=== PATIENT | female | born 1970 | race Caucasian/White ===

== ENCOUNTER 2016-11-17 13:00 | Emergency (ER) | payer OTHER ==
[~2016-11-17] VITALS: Ht 154.9 cm; Wt 67.5 kg
[2016-11-17 13:06] VITALS: TEMP 36.5; Ht 154.9 cm; Wt 67.5 kg
[2016-11-17 13:57] VITALS: O2SAT 97
[2016-11-17] MEDS ORDERED: SODIUM CHLORIDE 0.9% 1000ML 1,000 ML IV SCH (14:01)
--- NOTE | 2016-11-17 14:13 | DIAGNOSTIC IMAGING REPORT ---
CT SCAN OF THE BRAIN WITHOUT IV CONTRAST CLINICAL HISTORY: Headache. Stroke like symptoms. Visual loss in the left eye. COMPARISON STUDY: No priors. TECHNIQUE: Unenhanced axial CT scan of the brain is performed from the vertex to the skull base. Automated dose control exposure was utilized. CT DOSE: 537.48 mGy.cm FINDINGS: Brain parenchyma: The brain parenchyma is normal in appearance. There is no hemorrhage, mass effect, or evidence of acute territorial ischemia by CT criteria. Cabezas-white matter is preserved. No extra-axial fluid collection is seen. Ventricles, sulci, cisterns: Normal in configuration. Intracranial vasculature: The visualized intracranial vasculature at the skull base is normal in appearance. Calvarium: Unremarkable. Sinuses and mastoids: The visualized paranasal sinuses are clear. The mastoid air cells are well pneumatized. Orbits: The bony orbits are grossly intact. IMPRESSION: There is no hemorrhage, mass effect, or evidence of acute territorial ischemia by CT criteria. Electronically signed by: James Zuñiga M.D. 11/17/2016 2:11 PM Dictated Date/Time: 11/17/2016 2:09 PM
[2016-11-17 14:15] LABS: BASO % 0.4 %; BASO ABS # 0.02 K/uL (0-0.2); COMPLETE YES; EOS % 2.2 %; HEMATOCRIT 36.5 % (37-47); LYMPH % 39.2 %; LYMPH ABS # 1.77 K/uL (1.2-3.4); MEAN CELL VOLUME 91.5 fL (80-100); MEAN CORPUSCULAR HEMOGLOBIN 32.3 pg (25-34); MEAN CORPUSCULAR HGB CONC 35.3 g/dl (32-36); MEAN PLATELET VOLUME 9.4 fL (7.4-10.4); MONO % 8.8 %; NEUT % 49.4 %; PLATELET COUNT 284 K/uL (130-400); RED BLOOD COUNT 3.99 M/uL (4.2-5.4); WHITE BLOOD COUNT 4.52 K/uL (4.8-10.8)
--- NOTE | 2016-11-17 14:27 | DIAGNOSTIC IMAGING REPORT ---
CHEST ONE VIEW PORTABLE HISTORY: Stroke COMPARISON: None. FINDINGS: The heart is normal in size. No pleural effusions. No pneumothorax. No focal lung consolidations. No evidence for pulmonary edema. IMPRESSION: No acute process. Electronically signed by: Jakob Cardoso M.D. 11/17/2016 2:26 PM Dictated Date/Time: 11/17/2016 2:25 PM
[2016-11-17 14:32] LABS: INR 0.9 (0.9-1.1); PROTHROMBIN TIME (PATIENT) 9.8 SECONDS (9.0-12.0)
[2016-11-17 14:33] LABS: BLOOD UREA NITROGEN 18 mg/dl (7-18); BUN/CREATININE RATIO 19.4 (10-20); CALCIUM 9.2 mg/dl (8.5-10.1); CARBON DIOXIDE 25 mmol/L (21-32); CHLORIDE 107 mmol/L (98-107); CREATININE 0.94 mg/dl (0.60-1.20); GLUCOSE 98 mg/dl (70-99); POTASSIUM 3.6 mmol/L (3.5-5.1); SODIUM 141 mmol/L (136-145)
[2016-11-17 14:37] LABS: BENZODIAZEPINE, URINE NEG (NEG); COCAINE,URINE NEG (NEG); PHENCYCLIDINE, URINE NEG (NEG)
[2016-11-17 14:38] LABS: CKMB/CK RATIO 0.7 (0-3.0)
[2016-11-17] MEDS ORDERED: DiphenhydrAMINE HCL 50 MG/ML VIAL IV STA (14:52)
[2016-11-17] MEDS ORDERED: SODIUM CHLORIDE 0.9% 1000ML 1,000 ML IV STA (14:52)
[2016-11-17] MEDS ORDERED: METOCLOPRAMIDE HCL INJ 5 MG/ML 2 ML VIAL IV STA (14:52)
--- NOTE | 2016-11-17 15:45 | DIAGNOSTIC IMAGING REPORT ---
Brain MRI WITHOUT CONTRAST HISTORY: Right facial and right hand numbness. TECHNIQUE: Multiplanar multisequence MRI of the brain was performed without the use of contrast. COMPARISON STUDY: None. FINDINGS: There are no areas of restricted diffusion to suggest acute infarction. The midline structures are intact. The paranasal sinuses are clear. The mastoid air cells are clear. The ventricles and sulci are within normal limits for age. There is no mass, hematoma, midline shift. The major vascular flow-voids at the skull base are well maintained. IMPRESSION: No acute intracranial abnormality. Electronically signed by: Jakob Cardoso M.D. 11/17/2016 3:43 PM Dictated Date/Time: 11/17/2016 3:29 PM
[2016-11-17] MEDS ORDERED: KETOROLAC TROMETHAMINE 30 MG/ML VIAL IV STA (15:56)
[2016-11-17] MEDS ORDERED: IBUP-1451 PO (16:25)
[2016-11-17] MEDS ORDERED: ESTR2TAB PO (16:25)
[2016-11-17 16:46] VITALS: BP 116/69; PULSE 67; O2SAT 97
--- NOTE | 2016-11-17 18:08 | EMERGENCY ROOM VISIT NOTE ---
History Report prepared by Nancy: Marco Gupta Under the Supervision of: Dr. Bill Dumont M.D. First contact with patient: 13:50 Chief Complaint: HEADACHE Stated Complaint: HEADACHE, NUMBNESS, CAN'T SEE L EYE History of Present Illness The patient is a 46 year old female who presents to the Emergency Room with complaints of a constant headache that began two and a half hours ago (at 1130) . She rates her pain an 8/10 in severity. At this time, the patient states her headache began and has been constant since. Thiry to forty minutes later (1200- 1210), she notes that the right side of her face began to be numb. She also began to have trouble with her vision on her right side as well. Now, the numbness has persistent and spread to her right arm and hand. She notes that she has tunnel vision as well. She states that light does not affect her headache. She denies any trouble swallowing, but notes that her tongue feels numb. She denies any abdominal pain or vomiting. She is currently taking hormone therapy. She is on Estradiol 2 mg daily. She is not taking any medication for her blood pressure. She denies any history of stroke in her family. She does state that she had a history of migraines when she was very young but has not had any in many years. She also states that this does not feel like her migraines and she is not light sensitive. Source of History: patient Onset: 2 and a half hours ago Position: head Symptom Intensity: 8/10 Quality: ache, numbness Timing: constant Associated Symptoms: + numbness (Right face and right arm/hand. None in legs or abdomen.), No vomiting, No abdominal pain Review of Systems See HPI for pertinent positives & negatives. A total of 10 systems reviewed and were otherwise negative. Past Medical & Surgical Medical Problems: (1) No Known Active Medical Problems Family History Patient reports no known family medical history. Social History Smoking Status: Never Smoker Smokeless Tobacco Use: No Drug Use: none Occupation Status: employed Current/Historical Medications Scheduled Estradiol (Estradiol), 2 MG PO QAM Scheduled PRN Ibuprofen Tab (Motrin), 800 MG PO Q8H PRN for Pain Allergies Coded Allergies: No Known Allergies (Unverified , 11/17/16) Physical Exam Vital Signs Date Time Temp Pulse Resp B/P (MAP) Pulse Ox O2 Delivery O2 Flow Rate FiO2 11/17/16 16:46 67 16 116/69 97 11/17/16 15:58 69 16 122/75 97 Room Air 11/17/16 14:58 69 20 138/83 97 Room Air 11/17/16 14:17 73 18 150/92 97 Room Air 11/17/16 13:57 97 Room Air 11/17/16 13:52 73 11/17/16 13:06 36.5 83 18 174/101 100 Room Air Physical Exam Constitutional: Vital signs reviewed. Eyes: Pupils are equal round reactive to light. Conjunctiva are noninjected. ENT: Pharynx is clear without erythema or exudate. Mucous membranes are moist. Neck supple without meningeal signs. Respiratory: Clear to auscultation bilaterally. Breath sounds are equal bilaterally. Cardiovascular: Regular rate and rhythm. No rubs or gallops. GI: Soft, nondistended and nontender. Bowel sounds are present. Musculoskeletal: No peripheral edema. No lower extremity tenderness. Integumentary: No cyanosis. Neurological: The patient is awake and alert. Cranial nerves II-XII are intact , except for dysesthesia to the right face. Motor is 5 out of 5 all extremities. Sensation is intact to light touch all extremities, except to the right arm from the shoulder down and the right flank. Unable to distinguish sharp sensation in these areas. Normal speech. No pronator drift. No limb ataxia. Visual woods tested by confrontation with loss of peripheral vision in the right eye. Psychiatric: Normal affect. Medical Decision & Procedures ER Provider Diagnostic Interpretation: Radiology results as stated below per my review and the radiologist's interpretation: CT SCAN OF THE BRAIN WITHOUT IV CONTRAST CLINICAL HISTORY: Headache. Stroke like symptoms. Visual loss in the left eye. COMPARISON STUDY: No priors. TECHNIQUE: Unenhanced axial CT scan of the brain is performed from the vertex to the skull base. Automated dose control exposure was utilized. CT DOSE: 537.48 mGy.cm FINDINGS: Brain parenchyma: The brain parenchyma is normal in appearance. There is no hemorrhage, mass effect, or evidence of acute territorial ischemia by CT criteria. Cabezas-white matter is preserved. No extra-axial fluid collection is seen. Ventricles, sulci, cisterns: Normal in configuration. Intracranial vasculature: The visualized intracranial vasculature at the skull base is normal in appearance. Calvarium: Unremarkable. Sinuses and mastoids: The visualized paranasal sinuses are clear. The mastoid air cells are well pneumatized. Orbits: The bony orbits are grossly intact. IMPRESSION: There is no hemorrhage, mass effect, or evidence of acute territorial ischemia by CT criteria. Electronically signed by: James Zuñiga M.D. 11/17/2016 2:11 PM Dictated Date/Time: 11/17/2016 2:09 PM CHEST ONE VIEW PORTABLE HISTORY: Stroke COMPARISON: None. FINDINGS: The heart is normal in size. No pleural effusions. No pneumothorax. No focal lung consolidations. No evidence for pulmonary edema. IMPRESSION: No acute process. Electronically signed by: Jakob Cardoso M.D. 11/17/2016 2:26 PM Dictated Date/Time: 11/17/2016 2:25 PM Brain MRI WITHOUT CONTRAST HISTORY: Right facial and right hand numbness. TECHNIQUE: Multiplanar multisequence MRI of the brain was performed without the use of contrast. COMPARISON STUDY: None. FINDINGS: There are no areas of restricted diffusion to suggest acute infarction. The midline structures are intact. The paranasal sinuses are clear. The mastoid air cells are clear. The ventricles and sulci are within normal limits for age. There is no mass, hematoma, midline shift. The major vascular flow-voids at the skull base are well maintained. IMPRESSION: No acute intracranial abnormality. Electronically signed by: Jakob Cardoso M.D. 11/17/2016 3:43 PM Dictated Date/Time: 11/17/2016 3:29 PM Laboratory Results 11/17/16 13:50 Red Blood Count 3.99, Mean Corpuscular Volume 91.5, Mean Corpuscular Hemoglobin 32.3, Mean Corpuscular Hemoglobin Concent 35.3, Mean Platelet Volume 9.4, Neutrophils (%) (Auto) 49.4, Lymphocytes (%) (Auto) 39.2, Monocytes (%) (Auto) 8.8, Eosinophils (%) (Auto) 2.2, Basophils (%) (Auto) 0.4, Neutrophils # (Auto) 2.23, Lymphocytes # (Auto) 1.77, Monocytes # (Auto) 0.40, Eosinophils # (Auto) 0.10, Basophils # (Auto) 0.02 11/17/16 13:50 Test 11/17/16 13:50 11/17/16 13:55 11/17/16 14:12 11/17/16 14:14 White Blood Count 4.52 K/uL (4.8-10.8) Red Blood Count 3.99 M/uL (4.2-5.4) Hemoglobin 12.9 g/dL (12.0-16.0) Hematocrit 36.5 % (37-47) Mean Corpuscular Volume 91.5 fL (80-100) Mean Corpuscular Hemoglobin 32.3 pg (25-34) Mean Corpuscular Hemoglobin Concent 35.3 g/dl (32-36) Platelet Count 284 K/uL (130-400) Mean Platelet Volume 9.4 fL (7.4-10.4) Neutrophils (%) (Auto) 49.4 % Lymphocytes (%) (Auto) 39.2 % Monocytes (%) (Auto) 8.8 % Eosinophils (%) (Auto) 2.2 % Basophils (%) (Auto) 0.4 % Neutrophils # (Auto) 2.23 K/uL (1.4-6.5) Lymphocytes # (Auto) 1.77 K/uL (1.2-3.4) Monocytes # (Auto) 0.40 K/uL (0.11-0.59) Eosinophils # (Auto) 0.10 K/uL (0-0.5) Basophils # (Auto) 0.02 K/uL (0-0.2) RDW Standard Deviation 41.2 fL (36.4-46.3) RDW Coefficient of Variation 12.2 % (11.5-14.5) Immature Granulocyte % (Auto) 0.0 % Immature Granulocyte # (Auto) 0.00 K/uL (0.00-0.02) Prothrombin Time 9.8 SECONDS (9.0-12.0) Prothromb Time International Ratio 0.9 (0.9-1.1) Activated Partial Thromboplast Time 25.8 SECONDS (21.0-31.0) Partial Thromboplastin Ratio 1.0 Anion Gap 9.0 mmol/L (3-11) Est Creatinine Clear Calc Drug Dose 67.1 ml/min Estimated GFR () 85.5 Estimated GFR (Non- 73.8 BUN/Creatinine Ratio 19.4 (10-20) Calcium Level 9.2 mg/dl (8.5-10.1) Total Creatine Kinase 102 U/L (26-192) Creatine Kinase MB 0.7 ng/ml (0.5-3.6) Creatine Kinase MB Ratio 0.7 (0-3.0) Troponin I < 0.015 ng/ml (0-0.045) Urine Opiates Screen NEG (NEG) Urine Methadone, Qualitative NEG (NEG) Urine Barbiturates NEG (NEG) Urine Phencyclidine (PCP) Level NEG (NEG) Ur Amphetamine/Methamphetamine NEG (NEG) MDMA (Ecstasy) Screen NEG (NEG) Urine Benzodiazepines Screen NEG (NEG) Urine Cocaine Metabolite NEG (NEG) Urine Marijuana (THC) NEG (NEG) Bedside Glucose 102 mg/dl (70-90) Bedside Prothrombin Time INR 0.9 (0.9-1.1) Laboratory results as reviewed by me. Medications Administered Medications (Trade) Dose Ordered Sig/Kenan Route Start Time Stop Time Status Last Admin Dose Admin Sodium Chloride 1,000 ml @ 50 mls/hr Q20H IV 11/17/16 14:01 11/17/16 17:39 DC 11/17/16 16:00 50 MLS/HR Sodium Chloride 1,000 ml @ 999 mls/hr Q1H1M STAT IV 11/17/16 14:52 11/17/16 15:52 DC 11/17/16 15:01 999 MLS/HR Metoclopramide HCl (Reglan Inj) 10 mg NOW STAT IV 11/17/16 14:52 11/17/16 14:54 DC 11/17/16 15:01 10 MG Diphenhydramine HCl (Benadryl Inj) 50 mg NOW STAT IV 11/17/16 14:52 11/17/16 14:54 DC 11/17/16 15:01 50 MG Ketorolac Tromethamine (Toradol Inj) 10 mg NOW STAT IV 11/17/16 15:56 11/17/16 15:57 DC 11/17/16 16:17 10 MG ECG Indication: other (Neurologic symptoms) Rate (beats per minute): 65 Rhythm: normal sinus Findings: no acute ischemic change, no ectopy ED Course 1350: The patient was evaluated in room A4. A complete history and physical exam was performed. 1401: Ordered Sodium Chloride 1000 ml @ 50 mls/hr IV. 1423: I called Dr. Ruiz from [facility] for a stroke consultation on this patient. He will evaluate the patient for possible t-PA. 1452: Ordered Benadryl Inj 50 mg IV, Reglan Inj 10 mg IV, Sodium Chloride 1000 ml @ 999 mls/hr IV 1456: I discussed the possibility for IV t-PA with the patient and Dr. Ruiz. We discussed the risks and benefits and decided to get a stat MRI of the brain. If the MRI is positive, we will administer the t-PA still within the four and a half hour window, but outside of the three hour window. 1528: I went to reassess the patient. She was not in the room. I reviewed her MRI. I am waiting for an official radiologist review. Dr. Ruiz was informed that the MRI was completed. 1531: Dr. Cardoso - Radiology, informed me that the MRI is negative. 1556: I reassessed the patient at this time. We discussed her MRI results. She is feeling better, but still has a headache. Ordered Toradol Inj 10 mg IV. 1622: I spoke with Dr. Ruiz again. We discussed the patient's MRI results. T- PA will not be administered. 1624: The patient feels better, and her vision has improved. She does not notice any more numbness, however she states that it is hard to tell. She would like to go home. 1642: Upon reevaluation, the patient appeared to have improvement of her symptoms. I discussed tonight's findings with her. She verbalized agreement of the treatment plan. She was discharged home. Medical Decision This is a 46-year-old female presents with a headache and neurologic symptoms. Differential diagnosis includes migraine headache I did perform a limited focused review of portions of the patient's old chart on the electronic medical record. The patient has had no recent pertinent visits to this hospital. Blood Pressure Screening: Patient was found to have an elevated blood pressure and was referred to their primary doctor for recheck and further treatment. Medication Reconciliation: I attest that I have personally reviewed the patient' s current medication list. I did evaluate the patient as noted above. She is presenting with a headache. It is diffuse and associated with neurologic symptoms including loss of peripheral vision in the right eye and numbness to the right side of her face, trunk and arm. She does have a history of hormone replacement use which is her only known risk factors for CVA. She does have a prior history of migraines. After evaluating patient I did immediately call a stroke alert. IV access was established. The patient was placed on a continuous cardiac cath rn. I did order and personally review the patient's 12-lead EKG and chest x-ray as described above. I did order and review the patient's blood work as noted in the electronic medical record. I did order a CT of the head. I did review the images myself as well as the radiology report as described above. There is no evidence of intracranial abnormality. The [facility] stroke neurologist did evaluate the patient using telemedicine. He said that he felt 95% sure that the patient likely had a migraine but the patient wanted to have IVTPA just in case. I did have further discussion with her and explained to her the risks of IVTPA. She was very unsure about what to do and so I suggested that we get a stat MRI. While she would be out of the three-hour window she would still be within the 4.5 hour extended window. She and the neurologist agreed with this plan. I did order a stat MRI of the brain which did not show any evidence of CVA. IVTPA was therefore not given. I did treat her with IV normal saline, Reglan, Toradol and Benadryl. On reevaluation she is feeling better. Her headache is improved and her neurologic symptoms are improved. She did wish to go home. The neurologist recommended outpatient follow up. She was discharged in good condition. Consults Time Called: 1420 Consulting Physician: Dr. Sara Hendricks [facility] Returned Call: [phone] He will be evaluating the patient for possible t-PA. We also spoke throughout the patient's stay as well. Please see the ED course. Impression Primary Impression: Headache Additional Impression: Multiple neurological symptoms Scribe Attestation The scribe's documentation has been prepared under my direct and personally reviewed by me in its entirety. I confirm that the note above accurately reflects all work, treatment, procedures, and medical decision making performed by me. Departure Information Dispostion Home / Self-Care Referrals No Doctor, Assigned Forms HOME CARE DOCUMENTATION FORM, IMPORTANT VISIT INFORMATION, Work Instructions Patient Instructions Headaches Migraine and Tension, My [facility] Additional Instructions You have been examined and treated today on an emergency basis only. This is not a substitute for, or an effort to provide, complete comprehensive medical care. It is impossible to recognize and treat all injuries or illnesses in a single emergency department visit. It is therefore important that you follow up closely with your physician. Call as soon as possible for an appointment. Return for worsening symptoms or if you develop fever, new numbness or weakness on one side of your body, difficulties with your speech or walking, or any other concerning symptoms. Problem Qualifiers Primary Impression: Headache Headache type: unspecified Headache chronicity pattern: acute headache Intractability: not intractable Qualified Codes: R51 - Headache
== END 2016-11-17 16:46 | disposition home or self-care (01) ==
LOC: C.EDB 13:01 → C.EDA 16:46
DX: R51 Headache (principal); R29.818 Other symptoms and signs involving the nervous system; Z86.69 Personal history of other diseases of the nervous system and sense organs

== ENCOUNTER → 2017-09-06 | Outpatient (CLI) | payer OTHER ==
[~2017-09-06] MED LIST: ESTR2TAB PO; IBUP-1451 PO
[2017-09-06 08:27] LABS: BASO % 0.5 %; BASO ABS # 0.02 K/uL (0-0.2); EOS % 2.1 %; EOS ABS # 0.09 K/uL (0-0.5); HEMATOCRIT 40.1 % (37-47); HEMOGLOBIN 13.8 g/dL (12.0-16.0); LYMPH % 49.4 %; LYMPH ABS # 2.12 K/uL (1.2-3.4); MEAN CORPUSCULAR HGB CONC 34.4 g/dl (32-36); MEAN PLATELET VOLUME 9.5 fL (7.4-10.4); MONO % 9.1 %; MONO ABS # 0.39 K/uL (0.11-0.59); NEUT % 38.9 %; NEUT ABS # 1.67 K/uL (1.4-6.5); PLATELET COUNT 312 K/uL (130-400); RED CELL DISTRIBUTION WIDTH CV 12.7 % (11.5-14.5); RED CELL DISTRIBUTION WIDTH SD 43.3 fL (36.4-46.3); WHITE BLOOD COUNT 4.29 K/uL (4.8-10.8)
[2017-09-06 08:36] LABS: PTT PATIENT 25.4 SECONDS (21.0-31.0)
[2017-09-06 08:46] LABS: ALBUMIN 4.3 gm/dl (3.4-5.0); ALT/SGPT 30 U/L (12-78); BLOOD UREA NITROGEN 12 mg/dl (7-18); CALCIUM 9.1 mg/dl (8.5-10.1); CARBON DIOXIDE 22 mmol/L (21-32); CHOLESTEROL 210 mg/dl (0-200); CREATININE 1.14 mg/dl (0.60-1.20); GLUCOSE 86 mg/dl (70-99); POTASSIUM 4.2 mmol/L (3.5-5.1); SODIUM 138 mmol/L (136-145)
[2017-09-06 08:49] LABS: ALKALINE PHOSPHATASE 63 U/L (45-117); AST/SGOT 15 U/L (15-37); LDL CHOLESTEROL CALCULATED 109 mg/dl; TOTAL PROTEIN 7.6 gm/dl (6.4-8.2)
== END | disposition home or self-care (01) ==
LOC: C.LAB 16:40
PROVIDERS: ATTEND Family Medicine
DX: R07.9 Chest pain, unspecified (principal); R58 Hemorrhage, not elsewhere classified

== ENCOUNTER 2019-02-18 05:37 | Observation (INO) ==
--- NOTE | 2019-02-03 16:22 | PAT Medication Instructions ---
Medication Instructions Date of Service February 03, 2019 Home Medications estradiol 2 mg PO QAM hydrochlorothiazide 12.5 mg PO QAM propranolol 20 mg PO QAM topiramate [Qudexy XR] 150 mg PO QAM vitamin E 1,000 unit PO QAM ASK your prescriber and surgeon estradiol 2 mg PO QAM STOP taking 2 weeks before surgery (or as soon as possible if surgery is within 2 weeks) vitamin E 1,000 unit PO QAM DO NOT take the morning of surgery hydrochlorothiazide 12.5 mg PO QAM Take morning of surgery With a small sip of water, OTHERWISE NOTHING TO EAT OR DRINK AFTER MIDNIGHT: propranolol 20 mg PO QAM topiramate [Qudexy XR] 150 mg PO QAM Other Notes If you have any questions please call us at [phone] or [phone] or [phone] or [phone]
--- NOTE | 2019-02-04 14:17 | Anesthesiology Consultation ---
Date of Service February 04, 2019 Assessment & Plan (1) Encounter for pre-operative examination: Chart Review Chart Review: Acceptable Risk for Surgery and Patient seen in Pre Admission Testing Consults Requested medical (Please refer to PCP for hypokalemia in setting of HCTZ. She is okay for surgery, but this should be adressed.) Teaching & Discussion Pre-Anesthesia Teaching/Discussion Notes: Instructed NPO after midnight before surgery,except medications with 15 cc of water. Medication instructions prov ided according to the PAT guidelines. History Surgery Operation Date: 02/18/19 07:30 Proposed Procedures p Bilateral Sagittal Split Ramus Osteotomy - Asael Medel MD, DDS Height/Weight Height: 5 ft 1 in Weight: 52.3 kg Allergies Allergy/AdvReac Type Severity Reaction Status Date / Time verapamil AdvReac Tremors Verified 02/04/19 14:35 Medications Home Medications Medication Instructions Recorded Confirmed Last Taken estradiol 2 mg PO QAM 01/28/19 01/28/19 Unknown hydrochlorothiazide 12.5 mg PO QAM 01/28/19 01/28/19 Unknown propranolol 20 mg PO QAM 01/28/19 01/28/19 Unknown topiramate [Qudexy XR] 150 mg PO QAM 01/28/19 01/28/19 Unknown vitamin E 1,000 unit PO QAM 01/28/19 01/28/19 Unknown Past Medical History Medical History Diverticular disease Endometriosis Hypertension Migraine 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 Exercise / Class Metabolic Activity II 4-5 Yardwork/Stairs/Walk up hill Past Family History Family History Grandmother (Maternal) Family history of diabetes mellitus Aunt Family hx of colon cancer Grandfather (Maternal) Family hx of colon cancer Past Surgical History Surgical History History of appendectomy History of cholecystectomy History of colonoscopy History of laparoscopy MULTIPLE History of tonsillectomy History of total abdominal hysterectomy and bilateral salpingo-oophorectomy Past Anesthesia History No Hx of Anesthesia Complications (except remote hx PONV) and No Family Hx of Anesthesia Complications History of PONV No Hx of Motion Sickness and History of PONV Social History Smoking Status: Never smoker Do You Dip or Chew Tobacco: No Hx Alcohol Use: Yes Alcohol type: beer alcohol intake frequency: a few times a month Hx Substance Use: No substance use type: does not use Review of Systems Patient denies chest pain, shortness of breath, dyspnea on exertion, reflux, cough, wheezing, palpitations. Physical Exam Vital Signs VITALS BP 103/71 P 64 TEMP 98.0 SP02 98%RA RESP 18 PHYSICAL Full neck and c-spine range of motion. Full TMJ range of motion. TMD 3.5 finger breaths Mallampati Score 2 Dentition: intact, several caps/crowns Lungs: clear throughout to auscultation Cardiac: regular rate and rhythm, no murmurs noted Spine: normal Extremities: no edema Testing Laboratory Results 02/04/19 14:45 02/04/19 14:45 Blood Type O Positive 02/04/19 14:45 Antibody Screen NEGATIVE 02/04/19 14:45
[2019-02-04 15:32] LABS: Basophils # (auto) 0.02 K/uL (0-0.2); Basophils % (auto) 0.3 %; Eosinophils # (auto) 0.03 K/uL (0-0.5); Eosinophils % (auto) 0.5 %; Hematocrit (blood only) 38.7 % (37-47); Hemoglobin 13.7 g/dL (12.0-16.0); Immature Granulocytes # (auto) 0.01 K/uL (0.00-0.02); Immature Granulocytes % (auto) 0.2 %; Lymphocytes # (auto) 3.05 K/uL (1.2-3.4); Lymphocytes % (auto) 47.7 %; Mean Corpuscular Hemoglobin 32.8 pg (25-34); Mean Corpuscular Hgb Conc 35.4 g/dL (32-36); Mean Corpuscular Volume 92.6 fL (80-100); Mean Platelet Volume 9.4 fL (7.4-10.4); Monocytes # (auto) 0.53 K/uL (0.11-0.59); Monocytes % (auto) 8.3 %; Neutrophils # (auto) 2.76 K/uL (1.4-6.5); Platelet Count 316 K/uL (130-400); RDW Coefficient of Variation 12.7 % (11.5-14.5); RDW Standard Deviation 42.7 fL (36.4-46.3); Red Blood Count 4.18 M/uL (4.2-5.4)
[2019-02-04 15:39] LABS: BUN Creatinine Ratio 18.4 (10-20); Calcium 9.3 mg/dl (8.5-10.1); Creatinine Clr Calc Pharmacy 47.8 ml/min; Est GFR (Non-African American) 59.5; Potassium 3.1 mmol/L (3.5-5.1)
[2019-02-18] MEDS ORDERED: LR 15ML/HR IV SCH (06:00)
[2019-02-18] MEDS ORDERED: DEXAMETHASONE SOD PHOSPHATE 8 MG in SYRINGE 0 ML IV SCH (06:00)
[2019-02-18] MEDS ORDERED: CEFAZOLIN 1000MG 1,000 MG/7.5 ML SYR IV SCH (06:00)
[2019-02-18] MEDS ORDERED: NEOSTIGMINE METHYLSULFATE 5 MG/5 ML SYR ONE (06:33)
[2019-02-18] MEDS ORDERED: PROPOFOL IV EMULSION 10 MG/ML 20 ML VIAL IV ONE ×2 (06:33→10:55)
[2019-02-18] MEDS ORDERED: ONDANSETRON INJ 2 MG/ML 2 ML VIAL ONE ×2 (06:33→09:57)
[2019-02-18] MEDS ORDERED: GLYCOPYRROLATE 0.2 MG/ML VIAL ONE (06:33)
[2019-02-18] MEDS ORDERED: MIDAZOLAM HCL 1 MG/ML 2ML VIAL ONE (06:33)
[2019-02-18] MEDS ORDERED: LIDOCAINE HCL 2% 2 ML VIAL/AMP(20MG/ML) INFIL ONE (06:33)
[2019-02-18] MEDS ORDERED: DEXAMETHASONE SOD INJ 4 MG/ML VIAL ONE (06:33)
[2019-02-18] MEDS ORDERED: fentaNYL citrate 100 MCG/2 ML VIAL ONE ×3 (06:34→11:28)
[2019-02-18] MEDS ORDERED: OXYMETAZOLINE 0.05% 30 ML BTL ONE (06:47)
[2019-02-18] MEDS ORDERED: LIDOCAINE 2% JELLY 5 ML TUBE ONE (06:48)
[2019-02-18] MEDS ORDERED: CHLORHEXIDINE GLUCONATE 0.12% 480 ML ONE (06:59)
[2019-02-18] MEDS ORDERED: TRIAMCINOLONE ACET 0.1% OINT 15 GM TUBE ONE (06:59)
[2019-02-18] MEDS ORDERED: BUPIVACAINE/EPINEPHRINE 0.5% 1:200,000 1.8 ML CARP ONE (07:00)
[2019-02-18] MEDS ORDERED: SCOPOLAMINE 1.5 MG TDSY ONE (07:02)
--- NOTE | 2019-02-18 07:12 | History & Physical Bridge Note ---
Date of Service February 18, 2019 History & Physical Bridge Note I have examined the patient, reviewed the History & Physical and in the interval since the performance of the History & Physical I have noted the following changes of clinical significance: no changes noted.
[2019-02-18] MEDS ORDERED: ePHEDrine sulfate 50 MG/ML AMP IV PRN (07:19)
[2019-02-18] MEDS ORDERED: ATROPINE SULFATE 0.1 MG/ML 10ML SYR IV PRN (07:19)
[2019-02-18] MEDS ORDERED: ROCURONIUM BROMIDE 10 MG/ML 5 ML VIAL ONE (08:34)
--- NOTE | 2019-02-18 09:59 | Post Operative Brief Note ---
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
[2019-02-18] MEDS ORDERED: ONDANSETRON INJ 2 MG/ML 2 ML VIAL IV PRN (10:05)
[2019-02-18] MEDS ORDERED: ACETAMINOPHEN/HYDROCODONE ELIX 15 ML/CUP UDP PO PRN (10:05)
[2019-02-18] MEDS ORDERED: ACETAMINOPHEN SOL 650 MG/20.3 ML UDC PO PRN (10:05)
--- NOTE | 2019-02-18 10:33 | Operative Report ---
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 PROCEDURE: Bilateral sagittal split ramus osteotomy with rigid internal fixation. SURGEON: Asael Medel DDS. ANESTHESIA: General. ESTIMATED BLOOD LOSS: 100 mL. DRAINS: None. SPECIMENS: None. COMPLICATIONS: None. INDICATIONS: Kassie is a 48-year-old lady who I have come to know well. She has significant mandibular pain, chewing dysfunction and TMJ problems related to an asymmetric class 3 skeletal malocclusion. I have worked closely with her programming internship to develop a treatment plan. She has had the requisite preoperative orthodontics and preoperative model surgery, and she is ready for her definitive corrective jaw surgery. I have reviewed this carefully with her on several occasions, the details of the surgery were reviewed with the expected outcomes as well as the associated risks and benefits, and she has signed the informed consent. She has also had a routine anesthesia preoperative evaluation and was started on some potassium for a modestly low potassium level. DESCRIPTION OF PROCEDURE: The patient was taken to the operating room and placed supine on the operating room table. Routine anesthesia monitors were applied. General anesthesia was induced and nasal endotracheal intubation was performed. The eyes were lubed and taped. The endotracheal tube was secured. Sterile prep and drape was performed and we took a timeout. I began by using 0.5% Marcaine with 1:200,000 epinephrine as local anesthesia. The inferior alveolar nerve blocks were completed on both sides. We placed IMF screws between the canine and first premolar teeth in all 4 quadrants to facilitate her intraoperative fixation and then I created the left mandibular posterior buccal sulcus incision with the needle tip electrocautery in the usual manner, carried this down to the bone of the mandible and exposed the mandible in a subperiosteal plane along the lateral ramus and on the superior medial ramus. I identified and protected the inferior alveolar neurovascular bundle, and with the lighted retractor to carefully visualize the area, the osteotomy was started with the reciprocating saw. This was carried out through the medial cortex above the nerve, down the anterior border and through the lateral cortex at the first molar position. Care was taken to extend this osteotomy around the inferior border and this wound was then packed off. I turned my attention to the right hand side where the similar soft tissue incision and dissection was carried out. The mandible was widely exposed and the same typical sagittal osteotomy was created with the reciprocating saw. As I began to mobilize the osteotomy and completed this right side first, a small portion of the buccal aspect of the proximal segment broke free, but this did not impact the ability to complete the osteotomy. The sagittal osteotomy was completed in a favorable manner and the nerve was intact. I did note that the bone density was quite significant in the mandible. With this side freed up, the osteotomy favorably completed, the wound packed off, I turned my attention back to the left hand side. As I completed this osteotomy, I saw the osteotomy progressing in an unfavorable manner with the condyle being retained on the distal segment. The nerve was in a favorable position and so I was able to go back and extend the osteotomy on the medial ramus a bit further and then extend the osteotomy at the inferior border a bit further and then used a curved osteotome to then redirect the osteotomy so that it was completed in the favorable location. I placed the patient into the splint and wire fixation in the planned class 1 occlusion and then I used a transbuccal trocar to provide rigid internal fixation. On the left side, I used 4 screws, 3 of which were in the more distal completed portion of the osteotomy and then 1 additional screw to stabilize the buccal plate that still had soft tissue attachments, but was involved in the nonfavorable portion of the osteotomy. With this side rigidly fixed, I then turned my attention to the right side and placed 3 superior border screws to rigidly fix that side per usual manner. I released her IMF and found the mandible stable in the planned class 1 occlusion with a small posterior open bite as was planned in the preoperative splint design. I irrigated the incisions, I removed the IMF screws. I closed the incisions with a running 4-0 chromic gut suture and the skin incisions for the transbuccal trocar were closed with 6-0 nylon. The patient was turned over to anesthesia, extubated in the operating room and transferred to the recovery area in stable condition. At the end of the procedure, all counts were correct. I attest to the content of the Intraoperative Record and any orders documented therein. Any exception s are noted below.
[2019-02-18] MEDS: HYDROmorphone INJ 1 MG/ML SYRINGE IV PRN ×2 (10:45→10:55)
[2019-02-18] MEDS: ACETAMINOPHEN/HYDROCODONE ELIX 15 ML/CUP UDP PO PRN (11:35)
--- NOTE | 2019-02-18 11:54 | Anesthesiology Progress Note ---
Date of Service February 18, 2019 Anesthesia Post Procedure Vital Signs Vital Signs: Temp Pulse Pulse Resp BP BP Pulse Ox 02/18/19 11:39 36.5 C 60 16 140/90 95 02/18/19 11:15 59 L 11 L 147/91 H 95 02/18/19 11:10 36.1 C L 59 L 12 145/97 H 95 02/18/19 11:00 62 12 153/92 H 96 02/18/19 10:50 59 L 10 L 150/91 H 95 02/18/19 10:40 61 11 L 148/96 H 99 02/18/19 10:30 63 12 154/85 H 100 02/18/19 10:21 36.4 C L 65 16 146/91 H 99 02/18/19 05:52 36.5 C 57 L 14 109/75 97 Pain Intensity Bilateral Jaw: Pain Intensity: 7 Transfer of Care Handoff Completed per policy Notes Mental Status: alert / awake / arousable Patient Amnestic to Procedure: Yes Nausea / Vomiting: adequately controlled Pain: adequately controlled Airway Patency, RR, SpO2: stable & adequate BP & HR: stable & adequate Hydration State: stable & adequate Anesthetic Complications: no major complications apparent and Pt Satisfied with anesthetic care
[2019-02-18] MEDS: MoRPHine SULFATE 2 MG/ML CARP IV PRN ×4 (13:26→20:57)
[2019-02-18] MEDS: MoRPHine SULFATE 4 MG/ML 1 ML CARP\\VIAL IV PRN ×2 (15:13→23:36)
[2019-02-19] MEDS: MoRPHine SULFATE 4 MG/ML 1 ML CARP\\VIAL IV PRN (05:37)
--- NOTE | 2019-02-19 07:08 | Progress Note ---
Date of Service February 19, 2019 Assessment & Plan (1) Mandibular prognathism: Progressing well after surgery, now with better pain control and improving PO intake Plan to monitor PO intake this morning and D/C home after breakfast. She has close outpatient follow up scheduled with me. Present on Admission?: Yes Subjective Resting comfortably now. Initially post op, she had quite a bit of pain and needed IV morphine so the decision was made to keep her over-night. She is taking sips of clears without difficulty. Physical Exam Physical Exam: Moderate to severe facial swelling and early eccymosis is present - not unexpected due to the difficulty of the procedure. Sensation is returning to the lower lip nicely Incisions intact Occlusion looks great Results & Data Vital Signs (Past 12 Hours) Vital Signs Temp Pulse Resp BP Pulse Ox 02/19/19 03:06 36.6 C 85 16 109/74 97 02/18/19 23:06 36.4 C L 81 16 123/79 98
--- NOTE | 2019-02-19 07:28 | Discharge Summary ---
ADMITTING DIAGNOSES: Mandibular prognathism and her hospital procedures for bilateral sagittal split ramus osteotomies to correct her malocclusion. COMPLICATIONS: None. HOSPITAL COURSE: I refer you to her dictated admission history and physical and operative report. The procedure was completed on the morning of 02/18/2019 and the patient was observed in the Same day surgery unit for several hours postop. She had fairly significant pain initially requiring IV Dilaudid and then IV morphine to gain adequate control through the course of the day, so we made the decision to admit her for overnight observation to ensure that her p.o. intake and her pain control was adequate before sending her home. Through the course of the evening, with a combination of IV morphine and some p.o. hydrocodone, we managed to improve her pain control. She is currently resting comfortably with normal vital signs. Surgical sites are as expected with moderate facial swelling and ecchymosis, but the occlusion as planned and intact sensation in her lower lip. She has been able to take clears p.o. with less difficulty overnight. The plan will be to monitor her p.o. intake through breakfast and then anticipate a discharge home later today with close outpatient followup. All the comprehensive postop instructions have been reviewed with her.
[2019-02-19] MEDS: ACETAMINOPHEN/HYDROCODONE ELIX 15 ML/CUP UDP PO PRN ×2 (07:39→12:09)
--- NOTE | 2019-02-19 08:58 | Anesthesiology Progress Note ---
Date of Service February 19, 2019 Anesthesia Post Procedure Vital Signs Vital Signs: Temp Pulse Pulse Resp BP Pulse Ox 02/19/19 07:40 36.7 C 79 16 114/77 96 02/19/19 03:06 36.6 C 85 16 109/74 97 02/18/19 23:06 36.4 C L 81 16 123/79 98 02/18/19 17:19 36.3 C L 58 L 16 128/86 98 02/18/19 16:25 36.0 C L 70 17 144/88 H 96 02/18/19 15:26 36.4 C L 74 16 138/79 96 02/18/19 14:53 36.5 C 70 15 131/93 96 02/18/19 14:32 36.3 C L 85 18 120/90 96 02/18/19 13:32 84 16 108/79 95 02/18/19 12:32 36.4 C L 72 16 111/82 96 02/18/19 11:59 77 16 143/89 H 95 02/18/19 11:39 36.5 C 60 16 140/90 95 02/18/19 11:15 59 L 11 L 147/91 H 95 02/18/19 11:10 36.1 C L 59 L 12 145/97 H 95 02/18/19 11:00 62 12 153/92 H 96 02/18/19 10:50 59 L 10 L 150/91 H 95 02/18/19 10:40 61 11 L 148/96 H 99 02/18/19 10:30 63 12 154/85 H 100 02/18/19 10:21 36.4 C L 65 16 146/91 H 99 Pain Intensity Bilateral Jaw: Pain Intensity: 7 Notes Mental Status: alert / awake / arousable and participated in evaluation Patient Amnestic to Procedure: Yes Nausea / Vomiting: adequately controlled Pain: adequately controlled Airway Patency, RR, SpO2: stable & adequate BP & HR: stable & adequate Hydration State: stable & adequate Anesthetic Complications: no major complications apparent and Pt Satisfied with anesthetic care
[2019-02-19] MEDS ORDERED: CHLORASEPTIC 1.4% SOLN 180 ML BTL MT PRN (11:20)
== END 2019-02-19 15:33 | disposition home or self-care (01) ==
LOC: ASU 05:37 → 3W 05:37